=== PATIENT | female | born 1975 | race Caucasian/White ===

== ENCOUNTER 2017-01-21 14:02 | Emergency (ER) | payer OTHER ==
--- NOTE | ~2017-01-21 | HP ---
History And Physical [id number] [place]. [address] NAME: NORMA MCCULLOUGH : 77 STATUS : [facility]#: [id number] AGE: 41 ADM/REG DATE : 01/21/17 MR#: [id number] REPORT SERV DATE: 01/21/17 DICTATED BY: TAMMI MORAN DATE: 01/21/17 REPORT STATUS : Draft TRANSCRIBED BY: MODChristian DATE: 01/21/17 DATE OF ADMISSION: 01/21/2017 ATTENDING SURGEON: aTmmi Moran M.D. RESIDENT: Clem Fields. CHIEF COMPLAINT: Right lower quadrant abdominal pain. HISTORY OF PRESENT ILLNESS: This is a 41-year-old, otherwise healthy, female who presents with a 3-week history of vague abdominal pain that began in the left upper quadrant, but then localized to the right lower quadrant. She denies any nausea, vomiting, diarrhea, fever, chills, or any other directly associated symptoms. She has never had pain like this before. Her last menstrual cycle was approximately 1 week ago. She has had some associated constipation in the past 24 hours. She has been tolerating p.o. Due to her persistent symptoms, she has seen her ciso today who recommended a CT scan. Subsequently, the patient had a CT scan performed which showed some concerns for appendicitis and accordingly, she came to the emergency department. The patient reports she has been taking garlic supplements by mouth as that is her preferred antibiotic treatment and using castor oil packs for homeopathic symptomatic relief. She denies any recent weight loss. PAST MEDICAL HISTORY: Constipation. FAMILY HISTORY: None. SURGICAL HISTORY: The patient reports she had a colonoscopy approximately 6 years ago with no significant reported findings. SOCIAL HISTORY: Patient has 6 children. Denies alcohol, tobacco, or illicit drug use. The patient is rather adamant about her wishes for homeopathic therapy. HOME MEDICATIONS: No prescriptions. Does take again, garlic supplements and uses castor oil packs at home. ALLERGIES: SULFA MEDICINES CAUSED ERYTHEMA NODOSUM AND RASH IN THE PAST. REVIEW OF SYSTEMS: Pertinent positives and negatives as above in the HPI. The patient denies any headaches, vision changes, localizing neurologic symptoms, weakness or any other issues. PHYSICAL EXAMINATION: GENERAL: This is an adult white female, in no acute distress. She is alert and oriented x3. CARDIOVASCULAR: Regular rate and rhythm. PULMONARY: Clear to auscultation bilaterally. ABDOMEN: The patient is obese. Abdomen is soft, nondistended, minimally tender to History And Physical [address] [address] NAME: NORMA MCCULLOUGH : 77 STATUS : DEP ER PAT#: [id number] AGE: 41 ADM/REG DATE : 01/21/17 MR#: [id number] REPORT SERV DATE: 01/21/17 DICTATED BY: TAMMI MORAN DATE: 01/21/17 REPORT STATUS : Draft TRANSCRIBED BY: MODL DATE: 01/21/17 palpation at the right lower quadrant with deep palpation only. There is no rebound, no guarding, no peritonitis, and no palpable masses. LABS: Urinalysis is negative. Urine test is negative. All LFTs are within normal limits. White count is 9.3, hematocrit 38.8, platelets 317. Renal panels within normal limits. IMAGING: CT of the abdomen and pelvis with contrast from outside facility, shows some mild stranding around the right lower quadrant as well as a fluid-filled mass like area near the tip of the appendix and the patient also has noted constipation. ASSESSMENT AND PLAN: This is a 41-year-old female with likely ruptured appendicitis. Currently, the is patient stable and nontoxic. I had an extensive discussion with the patient and patient's family about treatment options. Included in this were the risks, benefits, and alternatives to surgical treatment as well as the timing of this treatment. I also thoroughly described concerns that were ruling out underlying malignancy as the source of appendicitis. After discussion, the patient and her family wished to be discharged from the emergency room and return tomorrow for a laparoscopic appendectomy possible open. I again detailed the procedure and answered all the questions. CA/MODChristian Tammi Moran M.D. / [id number] CC: Maximus Long D.O.
[2017-01-21 12:31] LABS: BASOPHILS 0.2 %; BASOPHILS ABSOLUTE 0.02 10/3/uL (0.0-0.16); EOSINOPHILS 1.9 %; EOSINOPHILS ABSOLUTE 0.18 10/3/uL (0.0-0.53); ER CBC TAT 0 Hrs 07 Mins; HEMATOCRIT 38.8 % (36.0-48.0); HEMOGLOBIN 13.1 g/dL (12.0-16.0); IMMATURE GRANULOCYTES 0.2 %; IMMATURE GRANULOCYTES ABSOLUTE 0.02 10/3/uL (0.0-0.11); LYMPHOCYTES 11.9 %; LYMPHOCYTES ABSOLUTE 1.11 10/3/uL (0.67-4.30); MEAN CORPUS HGB CONC 33.8 g/dL (32.0-36.0); MEAN CORPUSCULAR HEMOGLOB 27.1 pg (26.0-34.0); MEAN PLATELET VOLUME 9.5 fL (9.2-13.0); MONOCYTES 6.7 %; MONOCYTES ABSOLUTE 0.63 10/3/uL (0.21-1.20); NEUTROPHILS 79.1 %; NEUTROPHILS ABSOLUTE 7.38 10/3/uL (2.02-8.40); PLATELET COUNT 317 10/3/uL (150-400); RBC DISTRIBUTION WIDTH 14.8 % (12.0-16.0); RED CELL COUNT 4.83 10/6/uL (4.0-5.6); WHITE BLOOD CELLS 9.3 10/3/uL (4.5-10.5)
[2017-01-21 12:33] LABS: MANUAL DIFF NO %; MEAN CORPUSCULAR VOLUME 80.3 fL (80-100)
[2017-01-21 12:49] LABS: A/G RATIO 0.8 (0.7-1.9); ALBUMIN 3.5 G/DL (3.5-5.0); ALKALINE PHOSPHATASE 94 U/L (45-117); CALCIUM, SERUM 8.8 MG/DL (8.5-10.4); CHLORIDE, SERUM 104 MMOL/L (96-112); CO2 (CARBON DIOXIDE) 28 MMOL/L (24-34); CREATININE 0.56 MG/DL (0.55-1.02); GFR AFRICAN AMERICAN 135 ML/MIN (>=60); GFR NON AFRICAN AMERICAN 117 ML/MIN (>=60); GLUCOSE, SERUM 92 MG/DL (60-99); POTASSIUM, SERUM 3.6 MMOL/L (3.5-5.3); SGOT(AST) 8 U/L (5-40); SGPT(ALT) 14 U/L (5-65); SODIUM, SERUM 139 MMOL/L (135-148); TOTAL BILIRUBIN 0.7 MG/DL (0-1.2)
[2017-01-21 12:50] LABS: BUN (BLOOD UREA NITROGEN) 8 MG/DL (6-23); GLOBULIN 4.5 G/DL (2.5-4.1)
[2017-01-21 13:19] LABS: ASCORBIC ACID (UR NOT ORDER) NEG (NEG); BILIRUBIN, URINE NEGATIVE (NEG); ER URINALYSIS TAT 0 Hrs 12 Mins; KETONE, URINE TRACE MG/DL (NEG); LEUKOCYTE ESTERASE(NOT OR NEG (NEG); NITRITE (URINE) NEG (NEG); WBC (NOT ORDERED) (RFLEX) 1 (0-5)
== END 2017-01-21 14:50 | disposition home or self-care (01) ==
LOC: ER 14:02
PROVIDERS: Emergency Medicine
DX: K59.00 Constipation, unspecified (principal); Z88.2 Allergy status to sulfonamides; Z88.8 Allergy status to other drugs, medicaments and biological substances
CPT/HCPCS: 80053; 81001; 84703; 85025; 99284

== ENCOUNTER 2017-01-22 08:21 | Inpatient (IN) | payer OTHER ==
--- NOTE | ~2017-01-22 | OP ---
Record Of Operation [facility] [address] [place]. [address] NAME: NORMA MCCULLOUGH : 77 STATUS : ADM Jayshree PAT#: [id number] AGE: 41 ADM/REG DATE : 01/22/17 MR#: [id number] REPORT SERV DATE: 01/22/17 DICTATED BY: TAMMI MORAN DATE: 01/22/17 REPORT STATUS : Draft TRANSCRIBED BY: MODL DATE: 01/22/17 DATE OF PROCEDURE: 01/22/2017 PREOPERATIVE DIAGNOSIS: Perforated appendicitis. POSTOPERATIVE DIAGNOSIS: Perforated appendicitis with abscess. ANESTHESIA: General endotracheal and local. PROCEDURE PERFORMED: Laparoscopic appendectomy with drainage of intraabdominal abscess. INDICATIONS: The patient is a 41-year-old female who presented to the hospital with three weeks of right lower quadrant abdominal pain. Workup including history, physical, lab work, and imaging were consistent with appendicitis, likely perforated. After discussion with the patient, was offered initially a trial of outpatient antibiotics and interval appendectomy. However, the patient preferred to avoid prolonged antibiotics due to holistic preferences. Accordingly, after discussion with the patient and the patient's family, it was decided to proceed with laparoscopic possible open appendectomy today. DESCRIPTION OF PROCEDURE: After informed consent had been obtained, the patient was properly identified. She was brought back to the operative suite and placed in the supine position. After adequate general endotracheal anesthesia had been achieved, the patient's abdomen was prepped and draped in the usual sterile fashion. A brief time-out was then performed, which the patient was again identified, procedure noted, and allergies and perioperative antibiotics noted. Local anesthetic was infused at the umbilicus. A vertical incision was then made through the midline of the umbilicus. Jennifer clamp was used to bluntly dissect down to the level of the anterior fascia. This was grasped with two hemostats and elevated in the intraoperative field. Scalpel was used to make a vertical incision through the fascia. A Jennifer clamp and finger dissection were used to bluntly enter the abdomen. A balloon trocar was then placed through this incision and the abdomen was insufflated with CO2. After adequate insufflation, laparoscope was placed through this port and intraabdominal contents were observed. There were no complications or injuries from initial entry noted. There was a mass of inflammatory tissue and omentum adherent in the right lower quadrant. Next, two 5 mm working trocars were placed under direct visualization, one in the right mid abdomen and one in the left lower quadrant. Two laparoscopic graspers were then used to bluntly peel away the omentum and inflammatory rind from the right lower abdominal wall. A pocket of purulence was encountered, which was suctioned and irrigated away. Approximately 10 mL of pus were present. This blunt dissection was continued around the abscess cavity until it was taken down from the anterior abdominal wall. Within the inflammatory tissues, there was a dilated, inflamed appendix visible. Appendix was densely adherent to both the omentum and the distal ileum. The lateral attachments to the appendix and cecum were taken down with combination of blunt and sharp dissection. In order to aid mobility, window was identified at the appendiceal mesentery at the base of the cecum. This was bluntly dissected and then laparoscopic stapler with tissue load was used to transect the appendix near its base. The Record Of Operation [address] [place]. [address] NAME: NORMA MCCULLOUGH : 77 STATUS : ADM Jayshree PAT#: [id number] AGE: 41 ADM/REG DATE : 01/22/17 MR#: [id number] REPORT SERV DATE: 01/22/17 DICTATED BY: TAMMI MORAN DATE: 01/22/17 REPORT STATUS : Draft TRANSCRIBED BY: LORETTA DATE: 01/22/17 distal appendix was then further elevated in the operative field. Laparoscopic ligature was then used to divide the densely adherent omentum from the edge of the appendix. Dissection was then continued along the appendiceal mesentery, trying to divide the appendix away from the distal ileum. Appendiceal mesentery was further dissected with a combination of ligature as well as laparoscopic stapler with multiple vascular loads. Good hemostasis was observed at ligature edges as well as staple lines. The inflammatory rind that was adherent to the distal ileum was then divided with laparoscopic scissors, fully freeing the appendix. The appendix was then placed in laparoscopic retrieval bag, which was temporarily left within the abdomen. Original staple line at the cecum was reobserved. As noted, there was a portion of appendiceal stump remaining, this was removed with a 2nd firing of laparoscopic stapler tissue load and placed in a 2nd retrieval bag which was also temporarily left within the abdomen. Attention was then turned to the right lower quadrant, which was thoroughly irrigated and suctioned dry. Close attention was paid to the area where the abscess cavity had been adhered to the distal ileum. This area was palpated with laparoscopic graspers. There was no noted serosal injury or leakage of bowel contents. Two laparoscopic retrieval bags were then removed from the 12 mm left lower quadrant trocar site. These were passed off and tagged to specimen. Round Demian drain was then passed through the right upper quadrant trocar site and directed into the right lower quadrant overlying the dissection bed. Right upper quadrant 5 mm trocar was then removed under direct visualization, leaving the drain in place. There was good hemostasis at the trocar site. Attention was then turned to the left lower quadrant trocar site, which also had good hemostasis. Excess CO2 was then evacuated from the abdomen and final umbilical trocar was removed. The drain was secured with a Prolene suture. The fascia was then reapproximated at both the umbilical and left lower quadrant trocar sites with interrupted 0 Vicryl suture. The skin was reapproximated at the trocar sites with interrupted Monocryl suture. All incisions were clean, dry, and had sterile Band-Aid applied. Drain site had a gauze dressing and tape applied. The patient was then awoken without difficulty from the procedure and taken to recovery room in stable condition. COMPLICATIONS: None. ESTIMATED BLOOD LOSS: 20 mL. SPECIMENS: Appendix. DRAINS: A single right upper quadrant drain directed into the right lower quadrant of the abdomen. FLUIDS: 1300 mL of crystalloid. DICTATED BY: Venkat Fields MD TS/MODChristian Tammi Moran M.D. Record Of Operation [address] [address] NAME: NORMA MCCULLOUGH : 77 STATUS : ADM Jayshree PAT#: [id number] AGE: 41 ADM/REG DATE : 01/22/17 MR#: [id number] REPORT SERV DATE: 01/22/17 DICTATED BY: TAMMI MORAN DATE: 01/22/17 REPORT STATUS : Draft TRANSCRIBED BY: LORETTA DATE: 01/22/17 / [id number] CC: Wilver Medrano D.O.
--- NOTE | ~2017-01-22 | DS ---
Discharge Summary [facility] [address] [place]. [address] NAME: NORMA MCCULLOUGH : 77 STATUS : DIS IN PAT#: [id number] AGE: 41 ADM/REG DATE : 01/22/17 MR#: [id number] REPORT SERV DATE: 02/03/17 DICTATED BY: TAMMI MORAN DATE: 02/02/17 REPORT STATUS : Draft TRANSCRIBED BY: LORETTA DATE: 02/02/17 Data Collection from hospitalization DISCHARGE DIAGNOSES: 1. Perforated appendicitis with abscess. 2. History of constipation. CONSULTATIONS: None. PROCEDURES PERFORMED: Laparoscopic appendectomy with drainage of intra-abdominal abscess 01/22/2017. PATHOLOGY: Appendix; appendectomy, acute appendicitis. MEDICATIONS: Levaquin 750 mg daily as directed, Flagyl 500 mg three times daily as directed. CONDITION AT DISCHARGE: Stable. DISPOSITION: She had been discharged home to continue a regular diet with activity as discussed. She is to follow up with me in the office on 02/04/2017. HOSPITAL COURSE: This 41-year-old female presented with a 3-week history of vague abdominal pain that began in the left upper quadrant but then localized to the right lower quadrant. She denied any nausea, vomiting, diarrhea, fever, chills or any other directly associated symptoms. She had never had any pain like this before. Her last menstrual cycle was approximately one week prior to admission. She had some associated constipation in the past 24 hours. She had been tolerating oral intake. Due to her persistent symptoms, she had seen her manager treasury on the day of admission, who recommended a CT scan. Subsequently, she had a CT scan performed, which showed some concerns for appendicitis and accordingly, she had presented to the emergency department. She reported that she had been taking garlic supplements by mouth as that was her preferred antibiotic treatment and using castor oil packs homeopathic symptomatic relief. She denied any recent weight loss. She was admitted for further evaluation and treatment. Upon admission to the hospital, she had been placed on orders for preoperative patient. She was then taken to the operating room where she did undergo the above appendectomy. She had tolerated this well and was transferred to the recovery room. On postop day 1, she was noted to have had emesis overnight x1 after receiving a morphine dose. She did have complaints of right lower quadrant pain. She was afebrile, and her vital signs were stable. She appeared to be in no distress. Her nausea and vomiting were likely felt to be medication related. However, she did refuse change to Dilaudid and wanted to continue morphine with Phenergan as needed. She was tolerating ice chips, and her pain was noted to be controlled. Robaxin was also added. On postop day #2, she was noted to have had a temperature up to 102 and also had some nausea and vomiting. She was continued on her current medications. On postop day #3, her diet was still being slowly advanced. She was afebrile, and her vital signs were stable. On postop day #4, she tolerated a liquid diet and had no new complaints. She did remain in stable condition and was then discharged with the above instructions. Information collected by: Michael Gilliland Discharge Summary [address] [address] NAME: NORMA MCCULLOUGH : 77 STATUS : DIS IN PAT#: [id number] AGE: 41 ADM/REG DATE : 01/22/17 MR#: [id number] REPORT SERV DATE: 02/03/17 DICTATED BY: TAMMI MORAN DATE: 02/02/17 REPORT STATUS : Draft TRANSCRIBED BY: LORETTA DATE: 02/02/17 I submit the above information as my discharge summary. NICOLÁS/LORETTA Tammi Moran M.D. / [id number] CC: Wilver Medrano D.O.
[2017-01-23 17:36] LABS: ASCORBIC ACID (UR NOT ORDER) NEG (NEG); BILIRUBIN, URINE NEGATIVE (NEG); KETONE, URINE 20 MG/DL (NEG); WBC (NOT ORDERED) (RFLEX) 4 (0-5)
[2017-01-23 17:47] LABS: LEUKOCYTE ESTERASE(NOT OR TRACE (NEG)
[2017-01-24 05:59] LABS: HEMATOCRIT 39.8 % (36.0-48.0); HEMOGLOBIN 13.2 g/dL (12.0-16.0); MANUAL DIFF YES %; MEAN CORPUS HGB CONC 33.2 g/dL (32.0-36.0); MEAN CORPUSCULAR HEMOGLOB 27.4 pg (26.0-34.0); MEAN CORPUSCULAR VOLUME 82.6 fL (80-100); MEAN PLATELET VOLUME 9.8 fL (9.2-13.0); PLATELET COUNT 392 10/3/uL (150-400); RBC DISTRIBUTION WIDTH 15.3 % (12.0-16.0); RED CELL COUNT 4.82 10/6/uL (4.0-5.6); WHITE BLOOD CELLS 17.7 10/3/uL (4.5-10.5)
[2017-01-24 06:32] LABS: BAND NEUTROPHILS 12 %; IMMATURE GRANS ABSOLUTE (CALC) 0.35 10/3/uL (0.0-0.11); LYMPHOCYTES 8 %; LYMPHOCYTES ABSOLUTE (CALC) 1.42 10/3/uL (0.67-4.30); METAMYELOCYTES 2 %; MONOCYTES 2 %; MONOCYTES ABSOLUTE (CALC) 0.35 10/3/uL (0.21-1.20); NEUTROPHILS ABSOLUTE (CALC) 15.58 10/3/uL (2.02-8.40); PLATELET ESTIMATE ADQ (ADEQUATE); RBC MORPHOLOGY NORM (NORMAL); SEGMENTED NEUTROPHIL (0) 76 %; TOTAL NUCLEATED CELLS 100
[2017-01-24 08:36] LABS: DIRECT BILIRUBIN 0.2 MG/DL (0.0-0.4); INDIRECT BILIRUBIN(NOT ORDER) 0.3 MG/DL (0.1-0.9); TOTAL BILIRUBIN 0.5 MG/DL (0-1.2)
[2017-01-24 08:46] LABS: BUN (BLOOD UREA NITROGEN) 8 MG/DL (6-23); CALCIUM, SERUM 8.7 MG/DL (8.5-10.4); CHLORIDE, SERUM 102 MMOL/L (96-112); CO2 (CARBON DIOXIDE) 26 MMOL/L (24-34); CREATININE 0.75 MG/DL (0.55-1.02); GFR AFRICAN AMERICAN 116 ML/MIN (>=60); GFR NON AFRICAN AMERICAN 100 ML/MIN (>=60); SODIUM, SERUM 135 MMOL/L (135-148)
[2017-01-24 08:47] LABS: GLUCOSE, SERUM 122 MG/DL (60-99)
[2017-01-25 05:37] LABS: BASOPHILS 0.1 %; BASOPHILS ABSOLUTE 0.01 10/3/uL (0.0-0.16); EOSINOPHILS 1.3 %; EOSINOPHILS ABSOLUTE 0.14 10/3/uL (0.0-0.53); HEMOGLOBIN 11.4 g/dL (12.0-16.0); IMMATURE GRANULOCYTES 0.4 %; IMMATURE GRANULOCYTES ABSOLUTE 0.04 10/3/uL (0.0-0.11); LYMPHOCYTES 3.8 %; LYMPHOCYTES ABSOLUTE 0.42 10/3/uL (0.67-4.30); MEAN CORPUS HGB CONC 32.9 g/dL (32.0-36.0); MEAN CORPUSCULAR HEMOGLOB 26.8 pg (26.0-34.0); MEAN CORPUSCULAR VOLUME 81.6 fL (80-100); MEAN PLATELET VOLUME 9.3 fL (9.2-13.0); MONOCYTES 4.8 %; MONOCYTES ABSOLUTE 0.53 10/3/uL (0.21-1.20); NEUTROPHILS 89.6 %; PLATELET COUNT 294 10/3/uL (150-400); RBC DISTRIBUTION WIDTH 15.5 % (12.0-16.0); RED CELL COUNT 4.25 10/6/uL (4.0-5.6); WHITE BLOOD CELLS 11.1 10/3/uL (4.5-10.5)
[2017-01-25 05:38] LABS: HEMATOCRIT 34.7 % (36.0-48.0); MANUAL DIFF NO %
[2017-01-25 05:54] LABS: BUN (BLOOD UREA NITROGEN) 7 MG/DL (6-23); CHLORIDE, SERUM 104 MMOL/L (96-112); CO2 (CARBON DIOXIDE) 29 MMOL/L (24-34); CREATININE 0.68 MG/DL (0.55-1.02); GFR AFRICAN AMERICAN 127 ML/MIN (>=60); GFR NON AFRICAN AMERICAN 109 ML/MIN (>=60); POTASSIUM, SERUM 3.9 MMOL/L (3.5-5.3); SGOT(AST) 17 U/L (5-40); SGPT(ALT) 10 U/L (5-65); SODIUM, SERUM 138 MMOL/L (135-148); TOTAL BILIRUBIN 0.4 MG/DL (0-1.2)
[2017-01-25 05:55] LABS: A/G RATIO 0.6 (0.7-1.9); ALBUMIN 2.3 G/DL (3.5-5.0); ALKALINE PHOSPHATASE 74 U/L (45-117); GLUCOSE, SERUM 152 MG/DL (60-99); TOTAL PROTEIN 6.3 G/DL (6.0-8.5)
[2017-01-26] MEDS ORDERED: FLAG500TAB PO (10:18)
[2017-01-26] MEDS ORDERED: LEVAQUIN750 MG PO (10:18)
== END 2017-01-26 12:00 | disposition home or self-care (01) | DRG 339 ==
LOC: SDC 08:21 → 5SO 13:34
PROVIDERS: Specialist; Surgery
PROC: 0W9F4ZZ Drainage of Abdominal Wall, Percutaneous Endoscopic Approach (ICD-10-PCS; 2017-01-22)
PROC: 0DTJ4ZZ Resection of Appendix, Percutaneous Endoscopic Approach (ICD-10-PCS; principal; 2017-01-22 09:15)
DX: K35.3 Acute appendicitis with localized peritonitis (principal); K91.3 Postprocedural intestinal obstruction; Y83.6 Removal of other organ (partial) (total) as the cause of abnormal reaction of the patient, or of later complication, without mention of misadventure at the time of the procedure; Y92.239 Unspecified place in hospital as the place of occurrence of the external cause
CPT/HCPCS: 71020; 74020; 80048; 80053; 81001; 82247; 82248; 83605; 84703; 85014; 85018; 85025; 87040; 88304; 99284; A9270-GY; J0690; J1170; J1885; J1956; J2250; J2270; J2405; J2550; J2710; J2800; J3010